=== PATIENT | female | born 1960 | race Hispanic/Latino ===

== ENCOUNTER → 2023-12-30 | Outpatient (CLI) | payer OTHER | END | disposition home or self-care (01) | LOC: RAH 14:43 | PROVIDERS: ATTEND Family Medicine | DX: M85.88 Other specified disorders of bone density and structure, other site (principal); Z78.0 Asymptomatic menopausal state | CPT/HCPCS: 77080 ==

== ENCOUNTER → 2024-01-06 | Outpatient (CLI) | payer OTHER | END | disposition home or self-care (01) | LOC: EDUNIT# 09:00 → RAH 09:04 | PROVIDERS: ATTEND Family Medicine | DX: Z12.31 Encounter for screening mammogram for malignant neoplasm of breast (principal); I71.43 Infrarenal abdominal aortic aneurysm, without rupture; R94.6 Abnormal results of thyroid function studies; I10 Essential (primary) hypertension; I16.9 Hypertensive crisis, unspecified | CPT/HCPCS: 76536; 76770; 77067; 93975 ==

== ENCOUNTER → 2024-01-18 | Outpatient (CLI) | payer OTHER ==
[2024-01-18 12:39] LABS: POTASSIUM 3.9 mmol/L (3.5-5.1)
== END | disposition home or self-care (01) ==
LOC: LAB 10:10
PROVIDERS: ATTEND Internal Medicine Cardiovascular Disease
DX: I71.40 Abdominal aortic aneurysm, without rupture, unspecified (principal)
CPT/HCPCS: 36415; 80048

== ENCOUNTER → 2024-02-01 | Outpatient (CLI) | payer OTHER ==
[~2024-02-01] MED LIST: IOHEXOL 350 MG/ML 100ML INFUS..BTL IV ONE
== END | disposition home or self-care (01) ==
LOC: RAH 09:52
PROVIDERS: ATTEND Internal Medicine Cardiovascular Disease
DX: I71.43 Infrarenal abdominal aortic aneurysm, without rupture (principal); I71.42 Juxtarenal abdominal aortic aneurysm, without rupture; K57.30 Diverticulosis of large intestine without perforation or abscess without bleeding; K80.20 Calculus of gallbladder without cholecystitis without obstruction; N85.2 Hypertrophy of uterus; N32.89 Other specified disorders of bladder; I72.3 Aneurysm of iliac artery; M47.815 Spondylosis without myelopathy or radiculopathy, thoracolumbar region; I25.119 Atherosclerotic heart disease of native coronary artery with unspecified angina pectoris; D25.9 Leiomyoma of uterus, unspecified
CPT/HCPCS: 74174; Q9967

== ENCOUNTER → 2024-04-03 | Outpatient (CLI) | payer MEDICARE ==
[2024-04-03] MEDS: REGADENOSON 0.4 MG/5 ML PF SYG IVP ONE (11:13)
--- NOTE | 2024-04-04 17:00 | HMCSR ---
APPROVED REPORT Height: 5 ft 9in Weight: 201 lbs TEST INDICATIONS CAD The imaging protocol used to acquire images was Rest Tc-99m/stress Tc-99m 1 day Consent: The procedure was explained and understood by the patient. Informerd consent was witnessed Edith Fofana RN First, low dose rest was performed then high dose stress. RESTING DATA: The resting ekg shows: NSR Rest SPECT myocardial perfusion imaging was performed in supine position 57 minutes following the int ravenous injection of 10.8 mCi of Tc-99 Sestamibi. Time of rest injection: 08:55: Date: 04/03/2024 Time of rest imagin:52: Date: 04/03/2024 PHARMACOLOGIC STRESS: Pharmacologic stress test was performed by injecting regadenoson 0.4 mg IV push followed by the intra venous injection of 33.2 mCi of Tc-99 Sestamibi. Time of stress injection: 10:20: Date: 04/03/2024 Time of stress imagin:19: Date: 04/03/2024 Heart Rate at time of stress injection: 78 bpm. Gated Stress SPECT was performed 59 minutes after stress injection. The images were gated to evaluate regional wall motion and calculate left ventricular ejection fracti on. STRESS DETAILS Reason for Termination: Infusion complete Stress Symptoms: Dyspnea Max HR Achieved: 108 bpm % of APMHR Achieved: 70 Max Blood Pressure: 137/83 mmHg Stress ECG: NSR LEFT VENTRICLE Size: The left ventricular size is normal. Systolic Function:The left ventricular systolic function is normal. Wall Motion: No regional wall motion abnormalities noted. The left ventricular ejection fraction was calculated to be 72%.TID = . LV PERFUSION The rest and stress images show normal perfusion. Conclusion The left ventricular size is normal. The left ventricular systolic function is normal. No regional wall motion abnormalities noted. The rest and stress images show normal perfusion. The left ventricular ejection fraction was calculated to be 72%.
== END | disposition home or self-care (01) ==
LOC: SHCH 08:37
PROVIDERS: ATTEND Internal Medicine Cardiovascular Disease
DX: I25.10 Atherosclerotic heart disease of native coronary artery without angina pectoris (principal)
CPT/HCPCS: 78452; 93017; J2785; A9500 ×2

== ENCOUNTER 2024-04-20 12:00 | Inpatient (IN) | payer MEDICARE ==
[~2024-04-20] VITALS: Ht 175.3 cm; Wt 91.2 kg
--- NOTE | 2024-04-20 13:03 | EKG ---
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
[2024-04-20 13:08] VITALS: BP 107/58; PULSE 88; RESP 16; TEMP 97.3
[2024-04-20 13:10] LABS: BASOPHILS # (AUTO) 0.04 K/uL (0.00-0.20); BASOPHILS % (AUTO) 0.5 % (0.0-5.0); EOSINOPHILS # (AUTO) 0.29 K/uL (0.00-0.70); EOSINOPHILS % (AUTO) 3.6 % (0.0-8.0); HEMATOCRIT 47.1 % (36-48); IMMATURE GRANULOCYTE ABSOLUTE 0.02 K/uL (0-1); LYMPHOCYTES % (AUTO) 24.9 % (21.0-51.0); MEAN CORPUSCULAR HEMOGLOBIN 31.2 pg (27.0-33.0); MEAN CORPUSCULAR HGB CONC 32.7 g/dL (32.0-36.0); MEAN CORPUSCULAR VOLUME 95.3 fL (79-99); MONOCYTES # (AUTO) 0.6 K/uL (0.1-1.0); NEUTROPHILS # (AUTO) 5.1 K/uL (1.8-7.7); NEUTROPHILS % (AUTO) 63.7 % (40.0-77.0); PLATELET COUNT (AUTO) 343 K/uL (130-400); RED BLOOD CELL COUNT(AUTO) 4.94 MIL/uL (4.00-5.50); RED CELL DISTRIBUTION WIDTH 13.1 % (11.0-15.5)
[2024-04-20 13:18] LABS: CREATININE 1.1 mg/dL (0.5-1.0); POTASSIUM 3.8 mmol/L (3.5-5.1)
[2024-04-20 13:18] LABS: APPEARANCE,URINE CLEAR (CLEAR); BILIRUBIN,URINE NEGATIVE (NEGATIVE); COLOR,URINE LIGHT-YELLOW (YELLOW); GLUCOSE, URINE (UA) NEGATIVE (NEGATIVE); KETONES,URINE NEGATIVE (NEGATIVE); LEUKOCYTE ESTERASE ,URINE NEGATIVE Leu/uL (NEGATIVE); NITRATE,URINE NEGATIVE (NEGATIVE); OCCULT BLOOD,URINE NEGATIVE (NEGATIVE); PH,URINE 6.5 (5.0-8.0); PROTEIN,URINE NEGATIVE (NEGATIVE); UROBILINOGEN,URINE 0.2 mg/dL (0.2-1.0)
[2024-04-20 13:20] LABS: INR <= 0.93 (0.85-1.15); PROTHROMBIN TIME 10.4 SEC (9.6-11.6)
[2024-04-20 13:21] LABS: PARTIAL THROMBOPLASTIN TIME 29.1 SEC (26.3-35.5)
[2024-04-20 13:21] LABS: ADD UA MICROSCOPIC NO
[2024-04-20] MEDS ORDERED: FENO200C28 PO (13:46)
[2024-04-20] MEDS ORDERED: PRAV10TA39 PO (13:46)
[2024-04-20] MEDS ORDERED: TRIA1CAP88 GT (13:46)
[2024-04-20] MEDS ORDERED: AMLO-257 PO (13:46)
[2024-04-20] MEDS ORDERED: METO-408 PO (13:46)
[2024-04-20] MEDS ORDERED: LEVO125C4 PO (13:46)
--- NOTE | 2024-04-20 13:58 | HMCIMG ---
CHEST 1VW HISTORY: Preop COMPARISON: None FINDINGS: A frontal projection of the chest was obtained. No acute pulmonary infiltrates is seen. The heart is borderline enlarged. Degenerative changes are seen. Tortuosity of aorta is seen. No evidence of aortic calcification is seen. IMPRESSION: 1. No acute pulmonary infiltrate is seen.
[2024-04-24] VITALS (32 sets, daily range): BP systolic 116–168; BP diastolic 62–162; PULSE 52–93; RESP 7–21; TEMP 95.6–98; O2SAT 98–100
[2024-04-24] MEDS ORDERED: dexaMETHasone SOD PHOSPHATE 10MG/ML 1ML VIAL ONE (06:41)
[2024-04-24] MEDS ORDERED: LIDOCAINE PF 100MG/5ML (2%) SYRINGE 5ML ONE (06:41)
[2024-04-24] MEDS ORDERED: MIDAZOLAM HCL 1 MG/ML 2ML VIAL ONE (06:43)
[2024-04-24] MEDS ORDERED: phenylEPHRINE HCL 10 MG/ML 1ML VIAL IV ONE (06:43)
[2024-04-24] MEDS ORDERED: ondanSETRON 4MG INJ ONE (06:44)
[2024-04-24] MEDS ORDERED: proPOFol 10 MG/ML 20ML VIAL IV ONE (06:44)
[2024-04-24] MEDS ORDERED: FENTanyl CITRate PF 50 MCG/1 ML 5ML AMP IV ONE (06:44)
[2024-04-24] MEDS ORDERED: ePHEDrine SULFate 50 MG/ML AMPULE ONE (06:44)
[2024-04-24] MEDS ORDERED: NEOSTIGMINE METHYLSULFATE 1MG/ML IV ONE (06:44)
[2024-04-24] MEDS ORDERED: GLYCOPYRROLATE 0.2 MG/ML 5 ML VIAL ONE (06:44)
[2024-04-24] MEDS ORDERED: rocuRONium bROMide 10MG/1ML 5ML VL ONE ×2 (06:44→11:10)
[2024-04-24] MEDS ORDERED: LIDOCAINE HCL 400MG/20ML VIAL ONE (06:44)
[2024-04-24] MEDS ORDERED: IOHEXOL 350 MG/ML 100ML INFUS..BTL IV ONE ×2 (06:44→07:45)
[2024-04-24] MEDS ORDERED: ceFAZolin SODIUM 1 GM VIAL ONE (06:45)
[2024-04-24] MEDS ORDERED: HEParin-NS 1,000 UNIT/500 ML 1,000 ML IV ONE ×2 (06:45→08:34)
[2024-04-24] MEDS ORDERED: NITROGLYCERIN 50MG VIAL ONE (06:45)
[2024-04-24] MEDS ORDERED: HEParin 10,000 UNIT/10ML (1,000 UNIT/ML) VIAL ONE ×3 (06:46→10:41)
[2024-04-24] MEDS ORDERED: SODIUM BICARB 50MEQ 50ML VIAL 50 ML ONE (06:46)
[2024-04-24] MEDS: 0.9%NACL 1000ML 1,000 ML IV ONE (07:19)
[2024-04-24] MEDS: ceFAZolin SODIUM 2 GM VIAL ONE (07:19)
[2024-04-24] MEDS ORDERED: HEParin-NS 1,000 UNIT/500 ML 500 ML IV ONE (10:03)
[2024-04-24] MEDS ORDERED: IODIXANOL 320 MG/ML 100 ML VIAL ONE (11:27)
[2024-04-24] MEDS ORDERED: acetaMINOPHEN 325 MG TAB PO PRN (12:30)
[2024-04-24] MEDS ORDERED: NOREPINEPHRIN 4MG/NS 250ML 250 ML IV SCH (12:30)
[2024-04-24] MEDS ORDERED: NITROGLYCERIN 50MG/D5W 250ML 250 BOT IV SCH (12:30)
--- NOTE | 2024-04-24 13:00 | NUR ---
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 No signs of distress noted.
[2024-04-24] MEDS: 0.9%NACL 1000ML 1,000 ML IV SCH (13:26)
--- NOTE | 2024-04-24 13:30 | NUR ---
Critical care made aware of new admission
[2024-04-24] MEDS: ondanSETRON 4MG INJ IV PRN (14:17)
[2024-04-24] MEDS: morPHINE 4 MG SYG IV PRN (14:17)
[2024-04-24] MEDS: ceFAZolin SODIUM 1 GM VIAL IVPB SCH (15:07)
--- NOTE | 2024-04-24 18:44 | HP ---
[facility] HISTORY & PHYSICAL Date Patient Seen: Apr 24, 2024 Time of Visit: 2029 Supervising Physician: [Dr. Tom De La Rosa ] Primary Care Physician: Dr. Toño Wright ] Outpatient Specialists: [ ] Inpatient Consults: [Dr. Hernandez-cardio ] PROBLEM LIST: Large, infrarenal abdominal aortic aneurysm and large bilateral common iliac artery aneurysm and a large right internal iliac artery aneurysm: (infrarenal AAA measuring 6.4 cm x 6 cm, right iliac aneurysm measuring 3.6 cm x 3.8 cm, left iliac aneurysm measuring 3.4 cm x 3.9 cm with a sizeable right internal iliac artery aneurysm): POA Status-post endoluminal graft placement in the infrarenal abdominal aorta, right and left common iliac arteries and right and left internal iliac arteries with extension into the right and left external iliac arteries and utilization of Apt us EndoAnchor screws x10- not POA: 04/24/2024 c/o Dr. Hernandez ROXIE-POA Acute hypoxic respiratory insufficiency requiring oxygen post-cardiac procedure- not POA Primary HTN HLD Hypothyroidism Chronic nicotine disorder Carpal tunnel syndrome PLAN: -Continue critical care management -Continue post-cardiac procedure order per Dr. Hernandez -Maintain tight BP control to keep SBP between 120-140, PRN IV Labetalol and PO Clonidine for SBP >140 -Neurovascular checks, monitor post-procedure dressing -Titrate oxygen to keep sats >92% -I.S. q1H x 10 while awake -Smoking cessation education for more than 5 minutes. Patient claims she is ready to quit -IV fluids for hydration -Continue to monitor kidney function and electrolytes, manage appropriately -Home meds reconciled and resumed by cardiology -Manage pain PRN HPI: [Patient is a 64-year-old female with PMH significant for HTN, HLD, chronic smoker and a recently diagnosed AAA who was seen and examined in ICU room 209 s/p endoluminal graft placement. Patient claims that she has been suffering from uncontrolled HTN with palpitations despite religiously taking her BP meds. Her PCP decided to send her for a CTA around which revealed the findings of large infrarenal AAA, right iliac aneurysm, left iliac aneurysm and right internal iliac artery aneurysm. Her most recent echo showed an EF of 65%, mild concentric LVH and mild aortic regurg. She claims taht she would have occasional back and abdominal pain but did not think it was related to her condition. Post-procedure, patient is hemodynamically stable and in no acute distress. Bedside RN reproted taht her saturatoin was droppping in the high 80% and was placed on supplemental oxygen. Patient denies COPD HX despite smoking at least 1 pack/day since she was 14 years old. She is currently pain-free. Bilateral DP/PT pulses are palpable. Dressings are CDI. SBP is well controlled below 120 mmHg at the time of my visit. Goals of care were discussed with the patient, verbalizing understanding and agreement. ] PAST MEDICAL HX: see above PAST SURGICAL HX: noncontributory SOCIAL HISTORY: No tobacco, ETOH, or illicit drug use Coded Allergies: acyclovir (Unverified Allergy, Unknown, 04/20/24) REVIEW OF SYSTEMS: 12 point ROS reviewed with patient. Pertinent positives mentioned above. Otherwise negative. PHYSICAL EXAM: GENERAL: alert, awake oriented x 3 HEENT: EOMI, Sclera non icteric, moist mucosa NECK: Supple, no JVD, trachea midline LUNGS: Clear breath sounds bilaterally. No wheezes HEART: Regular rate and rhythm. Normal S1 and S2, without murmurs ABD: Abdomen soft, nontender. Bowel sounds present EXT: No clubbing cyanosis or edema, dressing CDI on rex groin and right upper arm NEURO: Alert and oriented to person, follows commands Vital Signs (last 8hr) Date Time Temp Pulse Resp B/P (MAP) Pulse Ox O2 Delivery O2 Flow Rate FiO2 04/24/24 18:15 56 11 130/110 (117) 91 21 04/24/24 18:00 55 10 133/75 (94) 91 04/24/24 17:45 76 10 133/118 (123) 90 04/24/24 17:30 68 11 131/83 (99) 92 04/24/24 17:15 53 10 124/77 (93) 91 04/24/24 17:00 55 10 124/64 (84) 93 04/24/24 17:00 99 Room Air* 0 21 04/24/24 16:45 56 9 126/78 (94) 92 04/24/24 16:30 54 7 128/79 (95) 95 04/24/24 16:15 57 8 132/76 (94) 96 04/24/24 16:00 54 11 129/89 (102) 94 04/24/24 15:00 91 12 140/87 (104) 94 21 04/24/24 14:30 56 21 138/89 (105) 94 04/24/24 14:00 61 13 138/102 (114) 100 04/24/24 13:45 56 14 132/99 (110) 100 04/24/24 13:30 52 10 140/84 (102) 100 04/24/24 13:15 55 10 168/162 (164) 100 04/24/24 13:00 56 11 132/69 (90) 100 100 04/24/24 13:00 100 Non-Rebreather+ 15 100 04/24/24 12:45 95.5 93 12 129/77 (94) 100 100 LABS: DIAGNOSTICS / RADIOLOGY RESULTS: [ ] PLAN NEURO: Minimize central acting medications as possible. Maintain fall precautions, adequate lighting during the day PULMONARY: Supplemental 02 as needed. Maintain aspiration precautions at all times CARDIOVASCULAR: Follow hemodynamics. Vital signs per facility protocol GI & NUTRITION: Continue with nutritional support. Continue stool softeners and laxatives as needed. KIDNEYS & ELECTROLYTES: Strict monitoring of intake, output and overall fluid balance. Avoid nephrotoxic medications to the extent possible. Medications to be dosed according to renal function. Monitor electrolytes and replace as needed ENDOCRINE: Maintain blood glucose between 100-180 at all times. Hypoglycemia protocol in place INFECTIOUS DISEASE: Trend temperature, WBC and procalcitonin level Follow cultures, deescalate antibiotics as soon as possible. Panculture if new onset fever ONCOLOGY/HEMATOLOGY/COAGULATION: Monitor for s/s of bleeding Monitor hemoglobin, coagulation studies as needed SKIN: Pressure ulcer prevention per facility protocol Specialty mattress ORTHO/REHAB: Continue PT/OT Prophylaxis: Continue GI and DVT prophylaxis Code Status: Full Resuscitation Disposition: TBD Other: Total patient care time: 35 minutes RONI NEAL AGPCNP Apr 24, 2024 18:44
[2024-04-24] MEDS ORDERED: cloNIDine HCL 0.1 MG TABLET PO PRN (19:00)
[2024-04-24] MEDS ORDERED: LAbetaLOL 20MG SYG IV PRN (19:00)
[2024-04-24] MEDS ORDERED: LACTULOSE 20 GM/30 ML UDCUP PO PRN (19:00)
[2024-04-24] MEDS ORDERED: ondanSETRON 4MG INJ IVP PRN (19:00)
--- NOTE | 2024-04-24 20:07 | CCATH ---
PROCEDURES PERFORMED: * Selective right axillary artery angiogram. * Right axillary artery access and placement of a 7-Vietnamese sheath. * Placement of a catheter in the abdominal aorta. * Placement of a catheter in the right and left common iliac arteries. * Placement of a catheter in the right internal iliac artery. * Abdominal aortogram. * Right and left common iliac artery angiogram. * Right internal iliac artery angiogram. * Placement of an endoluminal graft in the infrarenal abdominal aorta. * Placement of an endoluminal graft in the right and left internal iliac arteries. * Coil embolization of a branch of the right internal iliac artery. * Placement of right and left external iliac extension limbs. * Placement of a right and left internal iliac artery extension limbs. * Placement of Aptus EndoAnchor screws x10. * Percutaneous access and repair of right and left common femoral arteries for 16-Vietnamese and 14-Vietnamese sheath respectively. INDICATIONS: Large, infrarenal abdominal aortic aneurysm and large bilateral common iliac artery aneurysm and a large right internal iliac artery aneurysm. COMPLICATIONS: None. TOTAL CONTRAST: Approximately 165 mL. COATING MIXER TENDER: Macario Hernandez II, MD ANESTHESIA: General anesthesia with endotracheal intubation. ESTIMATED BLOOD LOSS: Approximately 50 mL. DESCRIPTION OF PROCEDURE: The patient was taken to the cardiac catheterization lab after the appropriate operative consents were signed. The patient was prepped and draped in the usual fashion. After anesthesia was induced, the right and left common femoral arteries were accessed with 6-Vietnamese sheath, which were placed and then Preclose sutures were obtained at 11 o'clock and 1 o'clock positions respectively on both sides. We upsized to a 9-Vietnamese sheath. Ultrasound guidance was utilized. The right axillary artery was then imaged with ultrasound and we accessed it and introduced a 6-Vietnamese sheath. At this point, we utilized a pigtail catheter and an 0.035 soft Glidewire that was advanced into the descending thoracic aorta followed by placement of the catheter. The catheter was then exchanged utilizing Amplatz Super Stiff wire and we were able to branch a 7-Vietnamese x 90 Destination sheath that was positioned in the abdominal aorta above the level of the renal arteries. At this point, we upsized on the right femoral artery with a 16-Vietnamese sheath and on the left femoral artery with a 14-Vietnamese sheath. The main body of the graft was advanced from the right common femoral artery and positioned in the infrarenal abdominal aorta just distal to the left renal artery. Neck was quite angulated and a short. The contralateral limb was then accessed and a flared 16 x 13 x 93 Endurant limb was placed extending into the aneurysmal left common iliac artery. At this point, the right side was fully deployed and an extension Endurant 16 x 13 x 82 was placed in the right iliac artery. Through that, we were able to advance the 7-Vietnamese axillary access sheath that was positioned into the common iliac artery. We then utilized a 0.035 wire to advance into the right internal iliac artery. We followed that with an FR4 catheter that was utilized to image the right internal iliac artery. We identified a branch of the right internal iliac artery that had to be coiled because of aneurysmal artery had to be sealed. This was followed by placement of 7 x 79 endoluminal graft, which was positioned into the right internal iliac artery past the area of the branch that had been coil embolized. This was extended back and then we placed another 7 x 59 within it and we superimposed with 2.8 x 39 Viabahn within the previously deployed graft. The right iliac extension limb was then utilized and the entire area was ballooned simultaneously with a Reliant balloon and the Viabahn balloon. At this point, we withdrew the 7-Vietnamese sheath and readvanced into the left iliac limb and then advanced a 0.035 wire into the internal iliac artery. This was then treated with placement of an endoluminal graft Viabahn 9 x 79 with a proximal 9 x 39 sitting adjacent to 16 x 13 x 93 external limb on the left external iliac artery. Both of those were ballooned simultaneously with a Reliant balloon and the VBX balloon. At this point, we proceeded by placement of EndoAnchor screw and we utilized a total of 10 screws in the neck of the graft after entire body was ballooned with a Reliant balloon. Final angiogram was performed revealing excellent flow with patency of both internal and external iliac arteries. There was minimal gutter leak on the right, however, overall there was excellent graft coverage. At this point, the Preclose was completed in the right and left common femoral arteries and the right axillary artery was closed with Perclose device with good final result and good hemostasis and no evidence of bleeding. 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 FINAL IMPRESSION: Successful complex procedure with endoluminal graft placement in the infrarenal abdominal aorta, right and left common iliac arteries and right and left internal iliac arteries with extension into the right and left external iliac arteries and utilization of Aptus EndoAnchor screws x10. PLAN: Continue medical management. TID: [id number] RECEIPT: [id number]
[2024-04-24] MEDS: atorVAStatin 10 MG TABLET PO SCH (22:00)
[2024-04-24] MEDS: SUGAMMADEX SODIUM 200 MG/2 ML VIAL IV ONE (22:03)
[2024-04-25] VITALS (34 sets, daily range): BP systolic 109–300; BP diastolic 55–300; PULSE 56–84; RESP 10–24; TEMP 98.1–98.8; O2SAT 95–96
[2024-04-25 04:46] LABS: BASOPHILS # (AUTO) 0.03 K/uL (0.00-0.20); BASOPHILS % (AUTO) 0.3 % (0.0-5.0); EOSINOPHILS # (AUTO) 0.05 K/uL (0.00-0.70); EOSINOPHILS % (AUTO) 0.5 % (0.0-8.0); HEMATOCRIT 36.9 % (36-48); IMMATURE GRANULOCYTE ABSOLUTE 0.04 K/uL (0-1); LYMPHOCYTES # (AUTO) 1.6 K/uL (1.0-4.8); LYMPHOCYTES % (AUTO) 15.2 % (21.0-51.0); MEAN CORPUSCULAR HEMOGLOBIN 31.2 pg (27.0-33.0); MEAN CORPUSCULAR HGB CONC 32.5 g/dL (32.0-36.0); MEAN CORPUSCULAR VOLUME 95.8 fL (79-99); MONOCYTES # (AUTO) 0.9 K/uL (0.1-1.0); MONOCYTES % (AUTO) 8.3 % (3.0-13.0); NEUTROPHILS # (AUTO) 7.8 K/uL (1.8-7.7); NEUTROPHILS % (AUTO) 75.3 % (40.0-77.0); PLATELET COUNT (AUTO) 204 K/uL (130-400); RED BLOOD CELL COUNT(AUTO) 3.85 MIL/uL (4.00-5.50); RED CELL DISTRIBUTION WIDTH 13.3 % (11.0-15.5); WHITE BLOOD COUNT (AUTO) 10.4 K/uL (4.8-10.8)
[2024-04-25 04:58] LABS: CREATININE 0.7 mg/dL (0.5-1.0); MAGNESIUM 1.7 mg/dL (1.80-2.40); POTASSIUM 3.1 mmol/L (3.5-5.1); THYROID STIMULATING HORMONE 1.52 uIU/mL (0.36-3.74)
[2024-04-25 05:00] LABS: HEMOGLOBIN A1C 5.6 % (4.0-6.0)
[2024-04-25] MEDS ORDERED: PoTASSium chloRIDE 20MEQ ER 20 MEQ ERTAB PO PRN (06:00)
[2024-04-25] MEDS ORDERED: PoTASSium chloRIDE 20MEQ/100ML 100 ML IV PRN ×2 (06:00)
[2024-04-25] MEDS: levoTHYROxine 125 MCG TABLET PO SCH (06:29)
[2024-04-25] MEDS: PoTASSium chl 10% ELIXIR 20MEQ 20 MEQ/15 ML UDCUP PO PRN (06:38)
[2024-04-25] MEDS: MAGNESIUM 2GM PREMIX 50ML 50 ML IV PRN (07:31)
--- NOTE | 2024-04-25 08:25 | PN ---
[facility] CARDIOLOGY PROGRESS NOTE Date Patient Seen: Apr 25, 2024 Time of Visit: 08:14 Problem List: AAA s/p endoluminal grafting, Bilateral common iliac aneurysm s/p endoluminal grafting, right interal iliac artery aneurysm s/p coil embolization done 04/24/2024 Smoker Obesity HTN HLD Interval History: Pt is evaluated in her room, post operatively. She is up to the chair, no s/s of complication to the femoral sites, pulses are palpable bilaterally. She has some cough noted post op, no phlegm production. BP adequate in the 140's. She has no c/o of abd pain or back pain. Pt has no complaints of nausea, sitting up with some mild dizziness. Hgb is stable post operatively. Mild electrolyte imbalance noted, nursing is replacing. LDL is elevated, we will plan to increase her statin. Physical Examination: GENERAL: [No acute distress.] HEAD: [Normal with no signs of head trauma.] EYES: [PERRLA, EOMI, conjunctiva and sclera normal.] ENT: [Hearing grossly intact, normal oropharynx.] NECK: [Supple without JVD. There is no tenderness, lymphadenopathy, or masses. No thyromegaly. Normal carotid upstrokes without bruits.] LUNGS: [Clear breath sounds bilaterally. There are right basilar rales one third of the way up the chest. No wheezes, or rhonchi.] HEART: [Normal rate and rhythm. Normal S1 and S2 without mumurs, gallop or rub.] VASC: [Peripheral pulses +2 bilaterally.] ABD: [Bowel sounds normal, soft, nontender, no masses, no organomegaly. No audible bruits.] : [Not examined] LYMPH: [No lymphadenopathy noted.] EXT: [No clubbing, cyanosis or edema.] SKIN: [No rashes or lesions noted.] NEURO: [Awake, alert, and oriented x3. No focal sensory or strength deficits noted.] Laboratory: [ ] Hematology Labs: Test 04/25/24 04:13 Range/Units White Blood Count 10.4 4.8-10.8 K/uL Red Blood Count 3.85 L 4.00-5.50 MIL/uL Hemoglobin 12.0 12.0-16.0 g/dL Hematocrit 36.9 36-48 % Mean Corpuscular Volume 95.8 79-99 fL Mean Corpuscular Hemoglobin 31.2 27.0-33.0 pg Mean Corpuscular Hemoglobin Concent 32.5 32.0-36.0 g/dL Red Cell Distribution Width 13.3 11.0-15.5 % Platelet Count 204 130-400 K/uL Mean Platelet Volume 9.5 7.5-10.5 fL Immature Granulocyte % (Auto) 0.4 0-1 % Neutrophils (%) (Auto) 75.3 40.0-77.0 % Lymphocytes (%) (Auto) 15.2 L 21.0-51.0 % Monocytes (%) (Auto) 8.3 3.0-13.0 % Eosinophils (%) (Auto) 0.5 0.0-8.0 % Basophils (%) (Auto) 0.3 0.0-5.0 % Neutrophils # (Auto) 7.8 H 1.8-7.7 K/uL Lymphocytes # (Auto) 1.6 1.0-4.8 K/uL Monocytes # (Auto) 0.9 0.1-1.0 K/uL Eosinophils # (Auto) 0.05 0.00-0.70 K/uL Basophils # (Auto) 0.03 0.00-0.20 K/uL Absolute Immature Granulocyte (auto 0.04 0-1 K/uL Nucleated Red Blood Cells 0.0 0.0-0.19 % Chemistry Labs: Test 04/25/24 06:45 04/25/24 04:13 Range/Units Whole Blood Glucose 132 H 70-110 MG/DL Sodium Level 147 H 136-145 mmol/L Potassium Level 3.1 L 3.5-5.1 mmol/L Chloride Level 111 101-111 mmol/L Carbon Dioxide Level 30 21-32 mmol/L Blood Urea Nitrogen 13 7-18 mg/dL Creatinine 0.7 0.5-1.0 mg/dL Glomerular Filtration Rate Calc 96 >90 mL/min Random Glucose 96 70-105 mg/dL Hemoglobin A1c 5.6 4.0-6.0 % Estimated Average Glucose (eAG) 114 70-126 mg/dL Total Calcium 7.9 L 8.5-10.1 mg/dL Phosphorus Level 3.0 2.5-4.9 mg/dL Magnesium Level 1.70 L 1.80-2.40 mg/dL Triglycerides Level 133 30-200 mg/dL Cholesterol Level 177 <200 mg/dL LDL Cholesterol 120 H 0-99 mg/dL HDL Cholesterol 35 35-85 mg/dL Thyroid Stimulating Hormone (TSH) 1.52 0.36-3.74 uIU/mL Diagnostics / Radiology: [Copy/Paste Echos/Imaging Report here] Impression and Plan: Pt doing well POD #1 after undergoing endoluminal grafting of AAA and bilateral femoral iliac aneurysms. She had a right iliac artery aneurysm that was coiled. Pt with underlying Smoking history and likely COPD, advised to perform IS and notify nursing if any sob/phlegm production that was purulent, higher risk for bonchitis in this patient population after intubation. Continues with antihypertensive regimen, toprol xl 25mg po daily, norvasc 5mg po daily Continue asa 81 mg po daily Increasing the atorvastatin to 40mg at hs for elevated LDL. OOB to ambulate Cover lytes CXR labs in NAOMI Fierro AGACNP Apr 25, 2024 08:25
[2024-04-25] MEDS ORDERED: LACTULOSE 20 GM/30 ML UDCUP PO PRN (08:30)
[2024-04-25] MEDS: PANTOPrazole 40 MG/VIAL IVP SCH (08:36)
[2024-04-25] MEDS: doCUSate SODIUM 100 MG CAP PO SCH (08:36)
[2024-04-25] MEDS: metOPROLol sucCINATE 25 MG TAB.SR.24H PO SCH (08:36)
[2024-04-25] MEDS: polyETHYLene GLYCol 3350 17 GM POWD.PACK PO SCH (08:36)
[2024-04-25] MEDS: amLODIPine 5 MG TAB PO SCH (08:36)
[2024-04-25] MEDS: ASPIRIN 81 MG EC TAB PO SCH (08:36)
[2024-04-25] MEDS: FENOFIBRATE MICRONIZED 200 MG PO SCH (08:38)
[2024-04-25] MEDS: TRIAMTEREN/HCTZ 37.5/25 MG 1 TAB TAB GT SCH (09:00)
--- NOTE | 2024-04-25 09:23 | PN ---
[facility] PROGRESS NOTE Date Patient Seen: Apr 25, 2024 Time of Visit: 09:23 Supervising Physician: [ ] Primary Care Physician: Dr. Toño Wright ] Outpatient Specialists: [ ] Inpatient Consults: [Dr. Hernandez-cardio ] PROBLEM LIST: Large, infrarenal abdominal aortic aneurysm and large bilateral common iliac artery aneurysm and a large right internal iliac artery aneurysm: (infrarenal AAA measuring 6.4 cm x 6 cm, right iliac aneurysm measuring 3.6 cm x 3.8 cm, left iliac aneurysm measuring 3.4 cm x 3.9 cm with a sizeable right internal iliac artery aneurysm): POA Status-post endoluminal graft placement in the infrarenal abdominal aorta, right and left common iliac arteries and right and left internal iliac arteries with extension into the right and left external iliac arteries and utilization of Aptus EndoAnchor screws x10- not POA: 04/24/2024 c/o Dr. Hernandez ROXIE-POA Acute hypoxic respiratory insufficiency requiring oxygen post-cardiac procedure-not POA Primary HTN HLD Hypothyroidism Chronic nicotine disorder Carpal tunnel syndrome PLAN: -Continue critical care management -Continue post-cardiac procedure order per Dr. Hernandez -Maintain tight BP control to keep SBP between 120-140, PRN IV Labetalol and PO Clonidine for SBP >140 -Neurovascular checks, monitor post-procedure dressing -Titrate oxygen to keep sats >92% -I.S. q1H x 10 while awake -Smoking cessation education for more than 5 minutes. Patient claims she is ready to quit -IV fluids for hydration -Continue to monitor kidney function and electrolytes, manage appropriately -Home meds reconciled and resumed by cardiology -Manage pain PRN INTERVAL HISTORY: [ ] REVIEW OF SYSTEMS: 12 point ROS reviewed with patient. Pertinent positives mentioned above. Otherwise negative. PHYSICAL EXAM: GENERAL: alert, awake oriented x 3 HEENT: EOMI, Sclera non icteric, moist mucosa NECK: Supple, no JVD, trachea midline LUNGS: Clear breath sounds bilaterally. No wheezes HEART: Regular rate and rhythm. Normal S1 and S2, without murmurs ABD: Abdomen soft, nontender. Bowel sounds present EXT: No clubbing cyanosis or edema, dressing CDI on rex groin and right upper ar m NEURO: Alert and oriented to person, follows commands Vital Signs (last 8hr) Date Time Temp Pulse Resp B/P (MAP) Pulse Ox O2 Delivery O2 Flow Rate FiO2 04/25/24 08:15 77 11 129/60 92 Room Air 04/25/24 08:00 98.8 84 12 164/77 95 Room Air 04/25/24 08:00 95 Room Air* 0 21 04/25/24 07:30 68 13 146/76 93 Room Air 04/25/24 07:00 74 13 147/93 93 Room Air 04/25/24 06:17 66 13 292/285 (287) 93 147/80 (102) 04/25/24 06:01 64 14 138/80 (99) 93 04/25/24 05:46 62 12 135/75 (95) 93 04/25/24 05:31 63 13 145/79 (101) 93 04/25/24 04:46 60 12 143/76 (98) 93 04/25/24 04:31 98.4 61 11 142/81 (101) 93 04/25/24 04:01 81 12 222/89 (133) 95 132/96 (108) 04/25/24 03:46 82 13 148/84 (105) 92 04/25/24 03:31 60 13 143/78 (99) 94 04/25/24 02:47 64 13 295/294 (294) 94 141/83 (102) 04/25/24 02:31 60 13 231/230 (230) 94 131/68 (89) 04/25/24 02:16 63 12 130/97 (108) 91 129/71 (90) 04/25/24 02:01 57 11 127/73 (91) 95 04/25/24 01:46 57 11 300/300 (300) 94 135/64 (87) 04/25/24 01:31 57 11 288/287 (287) 94 139/68 (91) LABS: Hematology Labs: Test 04/25/24 04:13 Range/Units White Blood Count 10.4 4.8-10.8 K/uL Red Blood Count 3.85 L 4.00-5.50 MIL/uL Hemoglobin 12.0 12.0-16.0 g/dL Hematocrit 36.9 36-48 % Mean Corpuscular Volume 95.8 79-99 fL Mean Corpuscular Hemoglobin 31.2 27.0-33.0 pg Mean Corpuscular Hemoglobin Concent 32.5 32.0-36.0 g/dL Red Cell Distribution Width 13.3 11.0-15.5 % Platelet Count 204 130-400 K/uL Mean Platelet Volume 9.5 7.5-10.5 fL Immature Granulocyte % (Auto) 0.4 0-1 % Neutrophils (%) (Auto) 75.3 40.0-77.0 % Lymphocytes (%) (Auto) 15.2 L 21.0-51.0 % Monocytes (%) (Auto) 8.3 3.0-13.0 % Eosinophils (%) (Auto) 0.5 0.0-8.0 % Basophils (%) (Auto) 0.3 0.0-5.0 % Neutrophils # (Auto) 7.8 H 1.8-7.7 K/uL Lymphocytes # (Auto) 1.6 1.0-4.8 K/uL Monocytes # (Auto) 0.9 0.1-1.0 K/uL Eosinophils # (Auto) 0.05 0.00-0.70 K/uL Basophils # (Auto) 0.03 0.00-0.20 K/uL Absolute Immature Granulocyte (auto 0.04 0-1 K/uL Nucleated Red Blood Cells 0.0 0.0-0.19 % Chemistry Labs: Test 04/25/24 06:45 04/25/24 04:13 Range/Units Whole Blood Glucose 132 H 70-110 MG/DL Sodium Level 147 H 136-145 mmol/L Potassium Level 3.1 L 3.5-5.1 mmol/L Chloride Level 111 101-111 mmol/L Carbon Dioxide Level 30 21-32 mmol/L Blood Urea Nitrogen 13 7-18 mg/dL Creatinine 0.7 0.5-1.0 mg/dL Glomerular Filtration Rate Calc 96 >90 mL/min Random Glucose 96 70-105 mg/dL Hemoglobin A1c 5.6 4.0-6.0 % Estimated Average Glucose (eAG) 114 70-126 mg/dL Total Calcium 7.9 L 8.5-10.1 mg/dL Phosphorus Level 3.0 2.5-4.9 mg/dL Magnesium Level 1.70 L 1.80-2.40 mg/dL Triglycerides Level 133 30-200 mg/dL Cholesterol Level 177 <200 mg/dL LDL Cholesterol 120 H 0-99 mg/dL HDL Cholesterol 35 35-85 mg/dL Thyroid Stimulating Hormone (TSH) 1.52 0.36-3.74 uIU/mL DIAGNOSTICS / RADIOLOGY RESULTS: [ ] PLAN NEURO: Minimize central acting medications as possible. Fall Precautions. Well lighted room through the day and minimize interruptions through the night to prevent acute delirium. PULMONARY: Supplemental 02 as needed Titrate Fio2 to keep Spo2 > or = 90% DuoNebs and CPT as needed IS hourly while awake for pulmonary hygiene Out of bed to chair as tolerated VAP Bundle Vent/BIPAP Settings: [ ] Driving pressure: [ ] P Plat: [ ] Static C: [ ] Static R: [ ] P/F Ratio: [ ] CARDIOVASCULAR: Follow hemodynamics. Titrate vasopressor to keep MAP >65 or systolic blood pressure >95mmHg DIPS: [ ] LINES: [ ] GI & NUTRITION: Continue nutritional support Aspirations precautions Prokinetic agents and laxatives as needed KIDNEYS & ELECTROLYTES: Strict monitoring of intake and output Daily weights Avoid nephrotoxic agents Monitor electrolytes and replace as needed Goal urine output of 30mL/hr or 0.5mL/kg/hr Urine output: [ ] Fluid Balance: [ ] ENDOCRINE: Maintain blood glucose between 100-180 at all times. Insulin sliding scale for blood glucose management INFECTIOUS DISEASE: Trend temperature. Lundberg-culture if febrile. Micro: [ ] Antibiotics: [ ] HEMATOLOGY & COAGULATION: Monitor H&H. Keep Hgb > 7 Transfuse 1 unit of PRBC for Hgb < 7 Transfuse 1 pack of platelets of platelets < 20, 000 Watch for any signs and symptoms of bleeding SKIN: Pressure ulcer prevention per facility protocol Rehab: PT/OT Prophylaxis: GI: [ ] DVT: [ ] Code Status: Full Resuscitation Disposition: [ ] Other: Total patient care time exceeds 35 minutes excluding all procedures. Case was discussed and seen with my supervising physician. The above plan was formulated and agreed upon. DERRICK RAMIREZ Apr 25, 2024 09:23
[2024-04-25] MEDS: NICOTINE 7 MG/ 24 HR PATCH TD SCH (09:32)
--- NOTE | 2024-04-25 12:23 | HMCIMG ---
CHEST 1VW REASON: eval for cough COMPARISON: 04/20/2024 FINDINGS: Single view of the chest was obtained. Lungs are clear. Heart size is normal. There is no pulmonary vascular congestion. Mediastinum and bony thorax appear unremarkable. IMPRESSION: 1. Normal single view chest x-ray.
[2024-04-25] MEDS: acetaMINOPHEN 325 MG TAB PO PRN (14:18)
[2024-04-25] MEDS ORDERED: ATOR40TA69 PO (15:13)
[2024-04-25] MEDS ORDERED: AEC81 PO (15:13)
--- NOTE | 2024-04-25 15:14 | DS ---
[facility] DISCHARGE SUMMARY Date Patient Seen: Apr 25, 2024 Time of Visit: 15:14 Supervising Physician: Alpa Valenzuela MD Primary Care Physician: Dr. Toño Wright ] Outpatient Specialists: [ ] Inpatient Consults: [Dr. Hernandez-cardio ] PROBLEM LIST: Large, infrarenal abdominal aortic aneurysm and large bilateral common iliac artery aneurysm and a large right internal iliac artery aneurysm: (infrarenal AAA measuring 6.4 cm x 6 cm, right iliac aneurysm measuring 3.6 cm x 3.8 cm, left iliac aneurysm measuring 3.4 cm x 3.9 cm with a sizeable right internal iliac artery aneurysm): POA Status-post endoluminal graft placement in the infrarenal abdominal aorta, right and left common iliac arteries and right and left internal iliac arteries with extension into the right and left external iliac arteries and utilization of Aptus EndoAnchor screws x10- not POA: 04/24/2024 c/o Dr. Hernandez ROXIE-POA Acute hypoxic respiratory insufficiency requiring oxygen post-cardiac procedure- not POA Primary HTN HLD Hypothyroidism Chronic nicotine disorder Carpal tunnel syndrome HOSPITAL COURSE: HPI Patient is a 64-year-old female with PMH significant for HTN, HLD, chronic smoker and a recently diagnosed AAA who was seen and examined in ICU room 209 s/p endoluminal graft placement. Patient claims that she has been suffering from uncontrolled HTN with palpitations despite religiously taking her BP meds. Her PCP decided to send her for a CTA around which revealed the findings of large infrarenal AAA, right iliac aneurysm, left iliac aneurysm and right internal iliac artery aneurysm. Her most recent echo showed an EF of 65%, mild concentric LVH and mild aortic regurg. She claims taht she would have occasional back and abdominal pain but did not think it was related to her condition. Post- procedure, patient is hemodynamically stable and in no acute distress. Bedside RN reproted taht her saturatoin was droppping in the high 80% and was placed on supplemental oxygen. Patient denies COPD HX despite smoking at least 1 pack/day since she was 14 years old. She is currently pain-free. Bilateral DP/PT pulses are palpable. Dressings are CDI. SBP is well controlled below 120 mmHg at the time of my visit. Goals of care were discussed with the patient, verbalizing understanding and agreement Today patient had no major overnight events per RN. Dressing to right axillary area clean dry and intact no hematoma present. Patient reports soreness to right arm but no swelling or discoloration. Bilateral radial pulses present to upper extremities. She was evaluated per Cardiology postop and has been cleared for discharge this morning. Patient to continue with baby aspirin daily and follow up with Cardiology one week. She has been afebrile, heart rate in the 70s hemodynamically stable with a blood pressure 116/71 respiratory rate of 16 saturating 96% on room air. CBC unremarkable, chemistry potassium was 3.1 covered per protocol and on repeat was 3.8 glucose 132 mg/dL, magnesium was 1.70 and was covered on repeat, magnesium 2.4. Chest x-ray with normal single-view. Lungs are clear heart size is normal there is no pulmonary vascular congestion mediastinum and bony thorax appear unremarkable. No pneumothorax. 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 She had a right iliac artery aneurysm that was coiled. Pt with underlying Smoking history and likely COPD, advised to perform IS and notify nursing if any sob/phlegm production that was purulent, higher risk for bonchitis in this patient population after intubation. Continues with antihypertensive regimen, toprol xl 25mg po daily, norvasc 5mg po daily Continue asa 81 mg po daily Increasing the atorvastatin to 40mg at hs for elevated LDL. OOB to ambulate OK to [place] home Follow up with Shank Faker Dr Hernandez in 1 week. PROCEDURES: as mentioned above DISCHARGE MEDICATIONS: see below Pt hemodynamically stable and afebrile at time of discharge. PCP notified of patients admission, hospital course and discharge. New Medications: Aspirin (Aspirin 81 Mg Ectab) 81 Mg Ectab 81 MG PO DAILY, #30 TAB.EC 1 Refill Atorvastatin Calcium (Lipitor) 40 Mg Tablet 40 MG PO HS, #30 TAB 1 Refill Continued Medications: Amlodipine Besylate (Amlodipine Besylate) 5 Mg Tablet 5 MG PO DAILY, TAB Fenofibrate,Micronized (Fenofibrate) 200 Mg Capsule 200 MG PO DAILY, CAP Levothyroxine Sodium (Levothyroxine) 125 Mcg Capsule 125 MCG PO ACBKFST, CAP Metoprolol Succinate (Metoprolol Succinate) 25 Mg Tab.er.24h 25 MG PO DAILY, TAB Triamterene/Hydrochlorothiazid (Triamterene-Hctz 37.5-25 mg Cp) 37.5 Mg-25 Mg Capsule 1 EACH GT DAILY, CAP Discontinued Medications: Pravastatin Sodium (Pravastatin Sodium) 10 Mg Tablet 10 MG PO DAILY, TAB PHYSICAL EXAM: GENERAL: alert, awake oriented x 3 HEENT: EOMI, Sclera non icteric, moist mucosa NECK: Supple, no JVD, trachea midline LUNGS: Clear breath sounds bilaterally. No wheezes HEART: Regular rate and rhythm. Normal S1 and S2, without murmurs ABD: Abdomen soft, nontender. Bowel sounds present EXT: No clubbing cyanosis or edema, dressing CDI on rex groin and right upper arm, Rex pedal pulses and rex radial pulses. NEURO: Alert and oriented to person, follows commands FOLLOW-UP: Follow-up with PCP (Toño Wright MD) in 2-3 days Follow up with Shank Faker (Dr Hernandez) in 1 week. RECOMMENDATIONS: See Discharge Instructions This case was seen and discussed with my supervising physician. More than 30 minutes spent on discharge process, including evaluation of the patient, discussion with nursing staff, medication reconciliation and follow-up appointments DERRICK RAMIREZ Apr 25, 2024 15:14
[2024-04-25 16:43] LABS: MAGNESIUM 2.4 mg/dL (1.80-2.40); POTASSIUM 3.8 mmol/L (3.5-5.1)
--- NOTE | 2024-04-25 18:00 | NUR ---
20 PIV removed from left arm, pressure dressing applied. Discharge instructions given to patient and spouse at bedside. Verbalized understanding to follow up with Dr. Hernandez and PCP as directed. Transferred to private car via wheelchair.
[2024-04-25] MEDS ORDERED: atorVAStatin 40 MG TABLET PO SCH (21:00)
== END 2024-04-25 17:55 | disposition home or self-care (01) | DRG 268 ==
LOC: EDSTATUS 12:00 → UNDOADMIN 04-24 05:32 → DAHIP 04-24 05:32 → 2BH 04-24 10:55
PROVIDERS: ADMIT Internal Medicine; ATTEND Internal Medicine
PROC: 04LE3DZ Occlusion of Right Internal Iliac Artery with Intraluminal Device, Percutaneous Approach (ICD-10-PCS; principal; 2024-04-24)
PROC: 04U03JZ Supplement Abdominal Aorta with Synthetic Substitute, Percutaneous Approach (ICD-10-PCS; 2024-04-24)
PROC: 047 Lower Arteries, Dilation (ICD-10-PCS; 2024-04-24)
PROC: 047C3DZ Dilation of Right Common Iliac Artery with Intraluminal Device, Percutaneous Approach (ICD-10-PCS; 2024-04-24)
PROC: 047D3DZ Dilation of Left Common Iliac Artery with Intraluminal Device, Percutaneous Approach (ICD-10-PCS; 2024-04-24)
PROC: 04U Lower Arteries, Supplement (ICD-10-PCS; 2024-04-24)
PROC: 04U Lower Arteries, Supplement (ICD-10-PCS; 2024-04-24)
PROC: 047F3DZ Dilation of Left Internal Iliac Artery with Intraluminal Device, Percutaneous Approach (ICD-10-PCS; 2024-04-24)
PROC: 04QK3ZZ Repair Right Femoral Artery, Percutaneous Approach (ICD-10-PCS; 2024-04-24)
PROC: 04QL3ZZ Repair Left Femoral Artery, Percutaneous Approach (ICD-10-PCS; 2024-04-24)
PROC: B410ZZZ Fluoroscopy of Abdominal Aorta (ICD-10-PCS; 2024-04-24)
PROC: 047E3DZ Dilation of Right Internal Iliac Artery with Intraluminal Device, Percutaneous Approach (ICD-10-PCS; 2024-04-24)
PROC: 047J3DZ Dilation of Left External Iliac Artery with Intraluminal Device, Percutaneous Approach (ICD-10-PCS; 2024-04-24)
PROC: 047H3ZZ Dilation of Right External Iliac Artery, Percutaneous Approach (ICD-10-PCS; 2024-04-24)
PROC: B31J1ZZ Fluoroscopy of Left Upper Extremity Arteries using Low Osmolar Contrast (ICD-10-PCS; 2024-04-24)
PROC: B31H1ZZ Fluoroscopy of Right Upper Extremity Arteries using Low Osmolar Contrast (ICD-10-PCS; 2024-04-24)
DX: I71.43 Infrarenal abdominal aortic aneurysm, without rupture (principal); J95.1 Acute pulmonary insufficiency following thoracic surgery; N17.9 Acute kidney failure, unspecified; I72.3 Aneurysm of iliac artery; I10 Essential (primary) hypertension; G56.00 Carpal tunnel syndrome, unspecified upper limb; F17.200 Nicotine dependence, unspecified, uncomplicated; E66.9 Obesity, unspecified; E03.9 Hypothyroidism, unspecified; E78.5 Hyperlipidemia, unspecified; Z71.6 Tobacco abuse counseling; Z79.82 Long term (current) use of aspirin; Z68.29 Body mass index [BMI] 29.0-29.9, adult; Z79.899 Other long term (current) drug therapy
CPT/HCPCS: 34705; 34709; 34712; 34713; 34717; 36415; 37242; 71045; 80048; 80061; 81003; 82948; 83036; 83735; 84100; 84132; 84443; 85025; 85347; 85610; 85730; 86850; 86900; 86901; 86923; 93005; A4344; A4606; C1725; C1760; C1769; C1887; C1893; C1894; G0378; J0690; J1100; J1644; J2003; J2250; J2270; J2371; J2405; J2470; J2704; J2710; J3010; J3475; J3490; J7030; Q9967; A4215; A4216; A4221; A4222; A4223; A4649; A4663; C1874

== ENCOUNTER → 2024-05-09 | Outpatient (CLI) | payer MEDICARE ==
[~2024-05-09] MED LIST changes: +AEC81 PO; +AMLO-257 PO; +ATOR40TA69 PO; +FENO200C28 PO; -IOHEXOL 350 MG/ML 100ML INFUS..BTL IV ONE; +LEVO125C4 PO; +METO-408 PO; +TRIA1CAP88 GT
[2024-05-09 12:05] LABS: CREATININE 0.8 mg/dL (0.5-1.0); POTASSIUM 4.1 mmol/L (3.5-5.1)
== END | disposition home or self-care (01) ==
LOC: LAB 09:15
PROVIDERS: ATTEND Internal Medicine Cardiovascular Disease
DX: I71.40 Abdominal aortic aneurysm, without rupture, unspecified (principal)
CPT/HCPCS: 36415; 80048

== ENCOUNTER → 2024-05-15 | Outpatient (CLI) | payer MEDICARE ==
[~2024-05-15] MED LIST changes: +IOHEXOL 350 MG/ML 100ML INFUS..BTL IV ONE
--- NOTE | 2024-05-16 08:23 | HMCIMG ---
Exam Type: CT angiogram abdomen and pelvis with contrast Clinical Information: Abdominal aortic aneurysm, without rupture, unspecified Comparison: None Technique: Routine helical scanning at 5mm collimation through the abdomen and pelvis after contrast administration. In addition, sagittal and coronary formations of the abdomen pelvis and surface rendering three-dimensional reconstructions of the abdominal aorta were performed. Findings: The lung bases are clear. The liver, spleen, pancreas, adrenal glands and kidneys are normal in appearance. The gallbladder shows cholelithiasis but No pathologic lymphadenopathy is evident. The stomach, bowel loops, and colon are otherwise unremarkable. Specifically, no large or small bowel dilatation or air/ fluid levels are noted to suggest obstruction or adynamic ileus. The pelvic viscera are normal in CT appearance. The perirectal fat planes are clear. The visualized osseous elements are normal for the patient's age. There is status post endovascular repair of an abdominal aortic aneurysm. No occlusion or recurrent dilatation or leakage seen. No evidence of graft infection. IMPRESSION: Status post endovascular repair. This study was performed using dose reduction techniques to include automated exposure control and/or adjustment of the mA and/or kV according to patient size.
== END | disposition home or self-care (01) ==
LOC: RAH 09:55
PROVIDERS: ATTEND Internal Medicine Cardiovascular Disease
DX: K80.20 Calculus of gallbladder without cholecystitis without obstruction (principal); I71.40 Abdominal aortic aneurysm, without rupture, unspecified
CPT/HCPCS: 74174; Q9967

== ENCOUNTER → 2025-03-28 | Outpatient (CLI) | payer MEDICARE ==
[~2025-03-28] MED LIST changes: -AEC81 PO; -IOHEXOL 350 MG/ML 100ML INFUS..BTL IV ONE; -LEVO125C4 PO; +LEVO125C5 PO; -METO-408 PO; -TRIA1CAP88 GT
== END | disposition home or self-care (01) ==
LOC: RAH 13:48
PROVIDERS: ATTEND Family Medicine
DX: Z12.31 Encounter for screening mammogram for malignant neoplasm of breast (principal)
CPT/HCPCS: 77067